=== PATIENT | female | born 1945 | race Asian ===

== ENCOUNTER 2018-02-17 09:01 | Emergency (ER) | payer MEDICARE, OTHER ==
[~2018-02-17] VITALS: Ht 152.4 cm; Wt 58.2 kg
[~2018-02-17 09:01] MED LIST: CALC1TAB15 PO; LISI-660 PO; PRAV10TA39 PO; VITAD5000 PO
[2018-02-17 10:12] VITALS: BP 130/71
== END 2018-02-17 10:26 | disposition home or self-care (01) ==
LOC: EMS 09:01
DX: J20.9 Acute bronchitis, unspecified (principal); I10 Essential (primary) hypertension; E78.00 Pure hypercholesterolemia, unspecified; F17.210 Nicotine dependence, cigarettes, uncomplicated; Z79.899 Other long term (current) drug therapy

== ENCOUNTER 2018-06-23 15:59 | Emergency (ER) | payer MEDICARE, OTHER ==
[~2018-06-23] VITALS: Ht 160 cm; Wt 56.8 kg
[2018-06-23 16:23] LABS: GLUCOSE,POINT OF CARE 132 MG/DL (70-110)
[2018-06-23] MEDS ORDERED: SIMV-259 PO (16:23)
[2018-06-23] MEDS ORDERED: METF-960 PO (16:23)
[2018-06-23 16:54] VITALS: BP 129/76
== END 2018-06-23 17:26 | disposition home or self-care (01) ==
LOC: EMS 16:00
DX: H11.31 Conjunctival hemorrhage, right eye (principal); I10 Essential (primary) hypertension; E11.9 Type 2 diabetes mellitus without complications; E78.00 Pure hypercholesterolemia, unspecified; Z88.8 Allergy status to other drugs, medicaments and biological substances; Z79.899 Other long term (current) drug therapy